=== PATIENT | male | born 1955 ===

== ENCOUNTER 2022-04-03 09:45 | Inpatient (IN) | payer OTHER ==
[~2022-04-03] VITALS: Ht 170.2 cm; Wt 82.1 kg
[2022-04-03] MEDS ORDERED: COZAAR100 MG PO (13:07)
[2022-04-03] MEDS ORDERED: LYRICA PO (13:07)
[2022-04-03] MEDS ORDERED: TIROSINT25 MCG PO (13:07)
[2022-04-03] MEDS ORDERED: FENOFIBR PO (13:08)
[2022-04-03] MEDS ORDERED: CRESTOR5 MG PO (13:08)
[2022-04-03] MEDS ORDERED: OPTIMAL D3 M350 MCG PO ×2 (13:09)
[2022-04-03] MEDS ORDERED: TOPROL XL50 M1 PO (13:10)
[2022-04-09] MEDS ORDERED: FENOFIBRATE160 MG (10:59)
[2022-04-09] MEDS ORDERED: PREGABALIN100 MG (10:59)
[2022-04-09] MEDS ORDERED: SEGLUROMET 7.51 EAC1 (10:59)
[2022-04-09] MEDS ORDERED: VITAMIN D3125 MC1 (10:59)
[2022-04-11] MEDS ORDERED: HYOSCYAMINE0.125 M1 SL (09:10)
[2022-04-11] MEDS ORDERED: ULTRACET PO (09:10)
[2022-04-11] MEDS ORDERED: LEVOFLOXACIN500 MG PO (09:11)
[2022-04-11] MEDS ORDERED: PEPCID AC20 MG PO (09:11)
== END 2022-04-11 11:34 | disposition home or self-care (01) | DRG 331 ==
LOC: SURH 04-08 05:53 → O/R 04-08 05:53 → SURG 04-08 09:45 → SURH 04-08 14:48
PROVIDERS: ADMIT Surgery; ATTEND Surgery
PROC: 0DTG4ZZ Resection of Left Large Intestine, Percutaneous Endoscopic Approach (ICD-10-PCS; principal; 2022-04-08 14:00)
DX: C18.6 Malignant neoplasm of descending colon (principal); Z20.822 Contact with and (suspected) exposure to COVID-19